=== PATIENT | female | born 1985 ===

== ENCOUNTER 2023-02-09 18:06 | Emergency (ER) | payer OTHER ==
[~2023-02-09] VITALS: Ht 152.4 cm; Wt 86.4 kg
[~2023-02-09 18:06] MED LIST: CILOXAN 5 ML5 ML OS; LEVAQUIN 5500 MG/TA1 PO; MIRENA52 MG IY; NORCO 325 MG-51 TAB PO; OMNICEF 300MG300 MG PO
[2023-02-09 18:21] VITALS: TEMP 98.3
[2023-02-09] MEDS ORDERED: ZOFRAN 4MG T4 MG/TAB PO (19:53)
[2023-02-09 20:40] VITALS: BP 117/75; PULSE 94
== END 2023-02-09 20:40 | disposition home or self-care (01) ==
LOC: COL.ER 18:06
DX: R11.2 Nausea with vomiting, unspecified (principal); R10.13 Epigastric pain
CPT/HCPCS: J2405; J2550; J7030

== ENCOUNTER 2024-07-29 18:51 | Inpatient (IN) | payer OTHER ==
[~2024-07-29] VITALS: Ht 144.8 cm; Wt 105.0 kg
[2024-07-29] VITALS (7 sets, daily range): BP systolic 115–141; BP diastolic 58–72; PULSE 74–95; TEMP 98.3
[~2024-07-29 18:51] MED LIST changes: +AMOXICILLIN 8751 TAB PO; +ZOFRAN 4MG T4 MG/TAB PO
--- NOTE | 2024-07-29 19:00 | NUR ---
Presents to L&D for scheduled induction of labor. Ambulatory to unit, accompanied by signficiant other.
[2024-07-29] MEDS ORDERED: miSOPROStol 25 MCG (1/4th of 100 MCG) TAB VG ONE (20:00)
[2024-07-29] MEDS ORDERED: miSOPROStol 25 MCG (1/4th of 100 MCG) TAB VG SCH (20:00)
[2024-07-29] MEDS ORDERED: Terbutaline 1 MG/ML 1 ML AMP SQ PRN (20:00)
[2024-07-29] MEDS ORDERED: LR & Oxytocin 500 ML IV SCH (20:00)
[2024-07-29] MEDS ORDERED: LR 1,000 ML IV SCH (20:00)
[2024-07-29 20:06] LABS: BASO % 0.3 % (0.0-2.0); EOS # 0.3 K/mm3 (0.0-0.7); EOS % 2.6 % (0.0-4.0); GRAN # 6.6 K/mm3 (1.4-6.5); HEMOGLOBIN 11.7 g/dl (12.5-16.0); LYMPH # 2.8 K/mm3 (1.2-3.4); LYMPH % 26.7 % (20.0-51.0); MEAN CELL VOLUME 81 fl (80.0-100.0); MEAN CORPUSCULAR HEMOGLOBIN 27 pg (27-31); MEAN CORPUSCULAR HGB CONC 33 g/dl (33.0-37.0); MEAN PLATELET VOLUME 10.3 fl (7.4-10.4); MONO # 0.9 K/mm3 (0.1-0.6); PLATELET COUNT 319 K/mm3 (130-400); REDCELL DISTRIBUTION WIDTH-CV 14.5 % (11.5-14.5)
[2024-07-29 20:10] LABS: HEMATOCRIT 35.8 % (37.0-47.0)
--- NOTE | 2024-07-29 20:11 | NUR ---
Patient states upper [place] language is [place] (sp)? States she does not need a oracle programmer. Patient mother and sister at bedside.
[2024-07-29] MEDS ORDERED: PRENATAL TABLET PO (20:23)
[2024-07-29 20:31] LABS: ALBUMIN 2.3 g/dL (3.5-5.0); BILIRUBIN,TOTAL 0.1 mg/dL (0.2-1.2); CALCIUM 8.9 mg/dL (8.4-10.2); CREATININE, serum 0.79 mg/dL (0.57-1.11)
--- NOTE | 2024-07-29 21:30 | NUR ---
Describes feeling contractions as "tightening." Denies any pain.
--- NOTE | 2024-07-29 22:03 | NUR ---
Assisted up to bathroom. Allowed to ambulate in room for awhile, as noted pateint c/o much discomfort laying in bed.
[2024-07-30] VITALS (80 sets, daily range): BP systolic 109–220; BP diastolic 51–95; PULSE 63–118; TEMP 98.4–100.4
--- NOTE | 2024-07-30 01:00 | NUR ---
Up to bathroom. Requests something to help her sleep.
--- NOTE | 2024-07-30 01:10 | NUR ---
Patient denies pain with contractions. Only c/o uncomfortable bed. Extra pillows offered, patient declines at this time.
--- NOTE | 2024-07-30 03:36 | NUR ---
Allowed off EFM at this time to shower prior to starting pitocin.
--- NOTE | 2024-07-30 03:59 | NUR ---
[id number]: off of EF to shower. Placed back on [employer] @ 3701.
--- NOTE | 2024-07-30 04:06 | NUR ---
Pit start @ 2mU/min at this time with explanation to patient. Note Category I strip prior to start. Patient verbalizes understanding.
--- NOTE | 2024-07-30 05:00 | NUR ---
Repositions to left lateral. Pillow provided between legs for comfort. Repositioning US, broken tracing during this time.
--- NOTE | 2024-07-30 07:33 | NUR ---
0645 TO 0715 PT WAS HAVING TACHYSYSTOLE. PITOCIN WAS TURNED DOWN TO 16 AT 0718 WITH PT REPOSITIONED AND FLUID BOLUS STARTED. WILL CONTINUE TO MONITOR.
--- NOTE | 2024-07-30 07:49 | NUR ---
DR MANZANARES CALLED TO LET RN KNOW THAT SHE WOULD BE HERE IN 10 MINUTES AND TO GET PT UP TO THE BATHROOM SO DR MANZANARES CAN BREAK WATER AND PLACE AN IUPC.
[2024-07-30] MEDS ORDERED: hydrALAZINE 20 MG/ML 1 ML VIAL IV PRN (10:45)
[2024-07-30] MEDS ORDERED: ROPivacaine PF 0.2% 200 ML IV ONE (11:01)
--- NOTE | 2024-07-30 11:44 | NUR ---
PT SEATED ON SIDE OF BED BP AND O2 MONITORS PLACED. 1133 CRICKET AT BEDSIDE TALKING WITH PT ABOUT RISKS, PT GIVES VERBAL CONSENT. 1144 TEST DOSE. PT TOLERATED PROCEEDURE WELL. PT REPOSITIONED TO WEDGE LEFT. PT DID HAVE 2 ELEVATED BPS DURRING PROCEEDURE OF 181/95. AFTER PT LAID DOWN PB WAS 110/58. DIFFICULTY TRACING CTX AND FHT'S DURING THIS TIME. RN WILL CONTINUE TO MONITOR.
[2024-07-30] MEDS ORDERED: diphenhydrAMINE 25 MG CAP PO PRN (13:00)
[2024-07-30] MEDS ORDERED: Ondansetron 4 MG/2 ML VIAL IV PRN ×2 (13:00→21:30)
[2024-07-30] MEDS ORDERED: Naloxone 0.4 MG/ML VIAL IV PRN ×2 (13:00→21:30)
[2024-07-30] MEDS ORDERED: diphenhydrAMINE 50 MG/ML 1 ML VIAL IV PRN (13:00)
[2024-07-30] MEDS ORDERED: ePHEDrine 50 MG/10 ML VIAL IV PRN (13:00)
[2024-07-30] MEDS ORDERED: LR 1,000 ML IV SCH (13:00)
[2024-07-30] MEDS ORDERED: LR 500 ML IV PRN (13:00)
--- NOTE | 2024-07-30 13:29 | NUR ---
CALLED DR MANZANARES DUE TO LATES NOT RESOLVING WITH POSITION CHANGES OR FLUID BOLUS. DR MANZANARES SAID THAT SHE HAD BEEN WATCHING THE STRIP AND WOULD CONTINUE TO WATCH, BUT TO HALF THE PITOCIN AND PUT HER ON OXYGEN. PT PIT TURNED TO 9 AND PT PLACED ON 1LR OF OXYGEN.
--- NOTE | 2024-07-30 15:54 | NUR ---
1554- TORB BY DR MANZANARES "THE PT'S PITOCIN IS TO GO UP VERY 15-20 MINUTES UNLESS I TELL YOU OTHERWISE. I AM AT HOME WATCHING THE STRIP."
--- NOTE | 2024-07-30 16:51 | NUR ---
DR MANZANARES CALLED TO CHECK IN ON PT. SVE -/0. PITOCIN AT 18. PT IS IN [facility]. DR MANZANARES ASK TO ME TO GO UP ON PITOCIN 1 MORE TIME. AND CHANGE HER OUT OF [facility] IN 20 MINUTES.
--- NOTE | 2024-07-30 19:16 | NUR ---
First push attempt with instruction.
--- NOTE | 2024-07-30 19:37 | NUR ---
Closed knee pushing began.
--- NOTE | 2024-07-30 20:05 | NUR ---
here to evaluate.
--- NOTE | 2024-07-30 20:08 | NUR ---
Decision made to proceed with primary .
[2024-07-30] MEDS ORDERED: Chloroprocaine PF 3% (30 MG/ML) 20 ML VIAL ONE (20:09)
[2024-07-30] MEDS ORDERED: ceFAZolin 2 G in Water For Injection,Sterile 20 ML IV ONE (20:15)
[2024-07-30] MEDS ORDERED: Azithromycin 500 MG in NS 250 ML IV ONE (20:15)
[2024-07-30] MEDS ORDERED: Ondansetron 4 MG/2 ML VIAL ONE (20:22)
[2024-07-30] MEDS ORDERED: Oxytocin 10 UNITS/ML VIAL ONE (20:22)
[2024-07-30] MEDS ORDERED: Ketorolac 30 MG/ML VIAL ONE (20:22)
--- NOTE | 2024-07-30 20:25 | NUR ---
To OR per bed.
[2024-07-30] MEDS ORDERED: fentaNYL 50 MCG/ML 2 ML VIAL ONE ×2 (20:45→20:53)
[2024-07-30] MEDS ORDERED: Methylergonovine 0.2 MG/ML 1 ML AMPUL ONE (20:50)
[2024-07-30] MEDS ORDERED: traZODone 50 MG TAB PO PRN (21:00)
[2024-07-30] MEDS ORDERED: oxyCODONE 5 MG TAB PO PRN (21:30)
[2024-07-30] MEDS ORDERED: LR 1,000 ML IV PRN (21:30)
[2024-07-30] MEDS ORDERED: Acetaminophen 500 MG TAB PO PRN (21:30)
[2024-07-30] MEDS ORDERED: miSOPROStol 200 MCG TAB RC ONE (21:30)
[2024-07-30] MEDS ORDERED: Loratadine 10 MG TAB PO PRN (21:30)
[2024-07-30] MEDS ORDERED: Measles/Mumps/Rubella Virus Vaccine Live w Diluent 0.5 ML VIAL SQ SCH (21:30)
[2024-07-30] MEDS ORDERED: Magnes Hydrox (MOM) 80 MG/ML 30 ML CUP PO PRN (21:30)
[2024-07-30] MEDS ORDERED: Tdap Vaccine 0.5 ML SYRINGE IM SCH (21:30)
[2024-07-30] MEDS ORDERED: Tranexamic Acid 1,000 MG in NS 100 ML IV ONE (21:45)
[2024-07-31] VITALS (11 sets, daily range): BP systolic 104–162; BP diastolic 49–102; PULSE 91–123; TEMP 97.9–99.1
[2024-07-31] MEDS ORDERED: Ibuprofen 800 MG TAB PO SCH (01:00)
--- NOTE | 2024-07-31 03:00 | NUR ---
Assisted out of bed for first time post delivery. Denies dizziness, lightheadedness, or nausea upon rising and ambulating. Madison catheter removed. Lauren care provided. Mesh underwear, lauren pad, clean gown applied. Ambulates in hallway for approximately 150 feet before returning to bed. Denies need for pain meds at this time.
[2024-07-31] MEDS ORDERED: Sennosides/Docusate 8.6-50 MG TAB PO SCH (08:00)
--- NOTE | 2024-07-31 10:15 | NUR ---
Initial visit; Parents thanked Statistical Engineer for offering congratulations and God's blessings for the of their son. Statistical Engineer thanked family for choosing [facility].
[2024-08-01 07:24] VITALS: BP 115/66; PULSE 97; TEMP 98.5
[2024-08-01 16:15] VITALS: BP 130/68; PULSE 82; TEMP 98.4
[2024-08-01 19:04] VITALS: BP 113/70; PULSE 100; TEMP 98
[2024-08-02 07:00] VITALS: BP 143/66; PULSE 91; TEMP 98
[2024-08-02 08:20] VITALS: BP 143/81
[2024-08-02] MEDS ORDERED: BREASTPUMP MC (08:37)
--- NOTE | 2024-08-02 08:39 | NUR ---
DR. MANZANARES NOTIFIED OF BP, WANTS 1 WEEK FU VISIT SCHEDULED.
--- NOTE | 2024-08-02 12:00 | NUR ---
DC INSTRUCTIONS REVIEWED, PT WHEELED OFF UNIT IN WHEELCHAIR, COMFORTABLE GETTING IN CAR.
== END 2024-08-02 12:00 | disposition home or self-care (01) | DRG 787 ==
LOC: LDRO 18:51 → LDR 19:54 → OB 07-30 22:05
PROVIDERS: ADMIT Obstetrics & Gynecology
PROC: 10D00Z1 Extraction of Products of Conception, Low, Open Approach (ICD-10-PCS; principal; 2024-07-30)
PROC: 3E0DXGC Introduction of Other Therapeutic Substance into Mouth and Pharynx, External Approach (ICD-10-PCS; 2024-07-30)
PROC: 3E033VJ Introduction of Other Hormone into Peripheral Vein, Percutaneous Approach (ICD-10-PCS; 2024-07-30)
PROC: 10907ZC Drainage of Amniotic Fluid, Therapeutic from Products of Conception, Via Natural or Artificial Opening (ICD-10-PCS; 2024-07-30)
DX: O36.5930 Maternal care for other known or suspected poor fetal growth, third trimester, not applicable or unspecified (principal); O72.1 Other immediate postpartum hemorrhage; O99.214 Obesity complicating childbirth; O62.1 Secondary uterine inertia; O24.420 Gestational diabetes mellitus in childbirth, diet controlled; Z37.0 Single live birth; Z3A.37 37 weeks gestation of pregnancy; O76 Abnormality in fetal heart rate and rhythm complicating labor and delivery
CPT/HCPCS: A9284; J0456; J0665; J0688; J1885; J1920; J2210; J2401; J2405; J2590; J2795; J3010; J7050; J7120